=== PATIENT | female | born 1960 | race Caucasian/White ===

== ENCOUNTER → 2021-07-13 | Outpatient (CLI) | payer BC ==
[~2021-07-13] MED LIST: ALPR.5 PO; BENZ2 PO; BUSP10 PO; CITA20 PO; DIAZ5 PO; DIPATR PO; HALO5 PO; OMEP20ER PO; PROM25 PO
== END | disposition home or self-care (01) ==
LOC: LAB SHORT 13:26 → LAB 13:26
PROVIDERS: Hospitalist
DX: Z12.4 Encounter for screening for malignant neoplasm of cervix (principal); R30.0 Dysuria
CPT/HCPCS: 87077; 87086; 87186

== ENCOUNTER 2022-03-29 08:59 | Day surgery (SDC) | payer BC ==
[~2022-03-29] VITALS: Ht 172.7 cm; Wt 99.9 kg
[2022-03-29] MEDS ORDERED: FAMO20 (09:19)
--- NOTE | 2022-03-29 09:43 | NUR ---
03/29/22 0943 Nery Ledezma PCN ALLERGY DR NORIEGA SAYS OK TO GIVE ANCEF PER ORD.TCR
--- NOTE | 2022-03-29 10:07 | NUR ---
03/29/22 KASSANDRA RICHARDS 0.05MG OF EPI ADDED TO 10MLS OF ROPIVACAINE 0.5% TO CREATE A LOCAL SOLUTION OF ROPIVACAINE 0.5% WITH EPI 1:200,000. LOCAL POURED ONTO STERILE FIELD FOR USE DURING CASE. 1MG OF EPI ADDED TO 1ST BAG OF 3000ML OF LR TO USE FOR IRRIGATION DURING PROCEDURE.
--- NOTE | 2022-03-29 11:02 | NUR ---
03/29/22 1102 Le Dela Cruz UPON ARRIVAL TO PACU PATIENT REQUIRED JAW THRUST FOR FIRST 5 MINUTES, DR RUDOLPH WAS AT BEDSIDE DURING FIRST FEW MINUTES.
--- NOTE | 2022-03-29 12:38 | NUR ---
03/29/22 [facility]IV[facility] PER ORDERS, PATIENT STATED PAIN 5/10, SEE VITAL SIGN STRIP FOR VITALS.
== END 2022-03-29 12:34 | disposition home or self-care (01) ==
LOC: ORSCSDS 08:59
PROVIDERS: Orthopaedic Surgery
PROC: 0SBD4ZZ Excision of Left Knee Joint, Percutaneous Endoscopic Approach (ICD-10-PCS; principal; 2022-03-29 10:30)
DX: S83.242A Other tear of medial meniscus, current injury, left knee, initial encounter (principal); M17.12 Unilateral primary osteoarthritis, left knee; F41.8 Other specified anxiety disorders; Z79.899 Other long term (current) drug therapy
CPT/HCPCS: A9270; J0171; J0690; J1100; J1885; J2250; J2405; J2704; J2795; J3010

== ENCOUNTER → 2022-06-20 | Outpatient (CLI) | payer BC ==
[~2022-06-20] MED LIST changes: +FAMO20
== END ==
LOC: LAB 08:30 → LAB SHORT 08:30
DX: R30.0 Dysuria (principal)
CPT/HCPCS: 87077; 87086; 87186

== ENCOUNTER → 2022-09-22 | Outpatient (CLI) | payer BC ==
[~2022-09-22] MED LIST changes: +CIPR500 PO; +METR500 PO; +Norco 5-325 Ta1 EACH PO
[2022-09-22 14:50] LABS: BASOPHILS ABSOLUTE AUTO 0.04 K/mm3 (0.00-0.23); BASOPHILS PERCENT AUTO 0 % (0-2); EOSINOPHILS ABSOLUTE AUTO 0.14 K/mm3 (0.00-0.68); EOSINOPHILS PERCENT AUTO 1 % (0-6); Hematocrit 35.1 % (33.0-51.0); Hemoglobin 11.1 g/dL (11.5-16.0); IMMATURE GRAN ABSOLUTE AUTO 0.03 K/mm3 (0.00-0.10); IMMATURE GRAN PERCENT AUTO 0 % (0-1); LYMPHOCYTES ABSOLUTE AUTO 1.41 K/mm3 (0.84-5.20); LYMPHOCYTES PERCENT AUTO 14 % (21-46); MONOCYTES ABSOLUTE AUTO 0.63 K/mm3 (0.16-1.47); MONOCYTES PERCENT AUTO 6 % (4-13); Mean Corpuscular HGB 27.3 pg (26.0-34.0); Mean Corpuscular HGB Conc 31.6 g/dL (31.5-36.5); Mean Corpuscular Volume 87 fL (80-100); Mean Platelet Volume 10.3 fL (9.1-12.4); NEUTROPHILS ABSOLUTE AUTO 8.15 K/mm3 (1.96-9.15); NEUTROPHILS PERCENT AUTO 78 % (41-73); Platelet Count 287 K/mm3 (150-400); RDW Coefficient Variation 12.9 % (11.7-14.2); RDW Standard Deviation 41.2 fL (35.1-46.3); Red Blood Cell Count 4.06 M/mm3 (3.80-5.20)
== END | disposition home or self-care (01) ==
LOC: LAB SHORT 11:10 → LAB 11:10
PROVIDERS: Hospitalist
DX: K57.92 Diverticulitis of intestine, part unspecified, without perforation or abscess without bleeding (principal)
CPT/HCPCS: 85025

== ENCOUNTER 2022-09-23 01:08 | Inpatient (IN) | payer BC ==
[~2022-09-23] VITALS: Ht 172.7 cm; Wt 96.6 kg
[~2022-09-23 01:08] MED LIST changes: -CIPR500 PO; -METR500 PO; -Norco 5-325 Ta1 EACH PO
[2022-09-23 02:11] LABS: BASOPHILS ABSOLUTE AUTO 0.03 K/mm3 (0.00-0.23); BASOPHILS PERCENT AUTO 0 % (0-2); EOSINOPHILS ABSOLUTE AUTO 0.12 K/mm3 (0.00-0.68); EOSINOPHILS PERCENT AUTO 1 % (0-6); Hematocrit 35.9 % (33.0-51.0); Hemoglobin 11.3 g/dL (11.5-16.0); IMMATURE GRAN ABSOLUTE AUTO 0.12 K/mm3 (0.00-0.10); IMMATURE GRAN PERCENT AUTO 1 % (0-1); LYMPHOCYTES ABSOLUTE AUTO 1.37 K/mm3 (0.84-5.20); LYMPHOCYTES PERCENT AUTO 11 % (21-46); MONOCYTES ABSOLUTE AUTO 0.85 K/mm3 (0.16-1.47); MONOCYTES PERCENT AUTO 7 % (4-13); Mean Corpuscular HGB Conc 31.5 g/dL (31.5-36.5); Mean Corpuscular Volume 86 fL (80-100); NEUTROPHILS ABSOLUTE AUTO 10.41 K/mm3 (1.96-9.15); NEUTROPHILS PERCENT AUTO 81 % (41-73); Platelet Count 281 K/mm3 (150-400); RDW Coefficient Variation 12.9 % (11.7-14.2); RDW Standard Deviation 40.6 fL (35.1-46.3); Red Blood Cell Count 4.19 M/mm3 (3.80-5.20)
[2022-09-23 02:16] LABS: Albumin, Blood 3.3 g/dL (3.4-5.0); Albumin/Globulin Ratio 0.8 (0.8-1.8); Bilirubin, Total 0.6 mg/dL (0.1-1.0); Bun/Creatinine Ratio 20.7 (12.0-20.0); Calcium, Blood 9.2 mg/dL (8.5-10.1); Creatinine, Blood 0.72 mg/dL (0.40-1.00); Globulin, Blood 4.2 g/dL (2.2-4.0); Potassium, Blood 3.9 mmol/L (3.5-5.5); Total Protein, Blood 7.5 g/dL (6.4-8.2)
[2022-09-23 08:50] VITALS: BP 112/72
--- NOTE | 2022-09-23 13:28 | NUR ---
Pt. is awake in bed and welcomes my visit. 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 Facilitate a life review and engage in a dialogue regarding work and miranda. Consider matters of miranda and belief, and establish rapport. Pt. displays evidence being engaged and aware. Prayed with Pt. Pt. and spouse both verblaize gratitude for the spiritual care visit.
[2022-09-23 14:29] VITALS: BP 103/78
--- NOTE | 2022-09-23 19:20 | NUR ---
SHIFT SUMMARY PT HAS DONE WELL SINCE ARRIVAL TO UNIT. A/O X'S 4. TOLERATING CLEAR LIQUIDS WITH NO N/V SINCE ARRIVAL. ORDER FOR TORADOL X'S 4 PRN PAIN, PT HAS NOT REQUIRED THIS SHIFT. PLAN TO CONTINUE IV ABX AT THIS TIME.
[2022-09-23 20:52] VITALS: BP 121/68
[2022-09-24 04:27] LABS: BASOPHILS ABSOLUTE AUTO 0.02 K/mm3 (0.00-0.23); BASOPHILS PERCENT AUTO 0 % (0-2); EOSINOPHILS ABSOLUTE AUTO 0.25 K/mm3 (0.00-0.68); EOSINOPHILS PERCENT AUTO 4 % (0-6); Hematocrit 29.9 % (33.0-51.0); Hemoglobin 9.4 g/dL (11.5-16.0); IMMATURE GRAN ABSOLUTE AUTO 0.01 K/mm3 (0.00-0.10); IMMATURE GRAN PERCENT AUTO 0 % (0-1); LYMPHOCYTES ABSOLUTE AUTO 1.68 K/mm3 (0.84-5.20); LYMPHOCYTES PERCENT AUTO 27 % (21-46); MONOCYTES ABSOLUTE AUTO 0.44 K/mm3 (0.16-1.47); MONOCYTES PERCENT AUTO 7 % (4-13); Mean Corpuscular HGB 27.2 pg (26.0-34.0); Mean Corpuscular HGB Conc 31.4 g/dL (31.5-36.5); Mean Corpuscular Volume 86 fL (80-100); NEUTROPHILS PERCENT AUTO 61 % (41-73); Platelet Count 210 K/mm3 (150-400); RDW Coefficient Variation 12.7 % (11.7-14.2); RDW Standard Deviation 40.3 fL (35.1-46.3); Red Blood Cell Count 3.46 M/mm3 (3.80-5.20)
[2022-09-24 04:54] LABS: Albumin, Blood 2.7 g/dL (3.4-5.0); Albumin/Globulin Ratio 0.8 (0.8-1.8); Bilirubin, Total 0.5 mg/dL (0.1-1.0); Bun/Creatinine Ratio 11.7 (12.0-20.0); Calcium, Blood 8.8 mg/dL (8.5-10.1); Creatinine, Blood 0.77 mg/dL (0.40-1.00); Globulin, Blood 3.4 g/dL (2.2-4.0); Magnesium, Blood 1.8 mg/dL (1.6-2.4); Potassium, Blood 3.9 mmol/L (3.5-5.5); Total Protein, Blood 6.1 g/dL (6.4-8.2)
[2022-09-24 05:15] VITALS: BP 118/71
[2022-09-24 07:54] VITALS: BP 125/63
[2022-09-24 11:09] LABS: Percent Saturation 7.4 % (15.0-50.0)
[2022-09-24 14:56] VITALS: BP 121/64
[2022-09-24] MEDS ORDERED: CIPR500 PO (16:24)
[2022-09-24] MEDS ORDERED: Norco 5-325 Ta1 EACH PO (16:25)
[2022-09-24] MEDS ORDERED: METR500 PO (16:25)
--- NOTE | 2022-09-24 17:30 | NUR ---
DISCHARGE PT DISCHARGED HOME FROM UNIT AT APROX 1715. PT GIVEN WRITTEN AND VERBAL DC INSTRUCTIONS AND VERBALIZED UNDERSTANDING OF THESE INSTRUCTIONS. IV REMOVED, TOLERATED WELL. HARD COPY FOR NARCOTIC PAIN MEDICATION GIVEN TO PT, COPY IN CHART. PT STATES SHE ALREADY HAS ABX SCRIPTS AT HOME SO NO NEED TO FAX TO PHARMACY. PT DECLINED WC TO [facility].
== END 2022-09-24 17:15 | disposition home or self-care (01) | DRG 392 ==
LOC: ER 01:08 → SURS 06:16 → MEDS 06:16 → SURS 08:45
PROVIDERS: Internal Medicine; Student in an Organized Health Care Education/Training Program; ADMIT Student in an Organized Health Care Education/Training Program
DX: K57.20 Diverticulitis of large intestine with perforation and abscess without bleeding (principal); D64.9 Anemia, unspecified; K21.9 Gastro-esophageal reflux disease without esophagitis; G47.30 Sleep apnea, unspecified; Z88.0 Allergy status to penicillin; Z88.8 Allergy status to other drugs, medicaments and biological substances; Z98.51 Tubal ligation status; Z98.84 Bariatric surgery status; Z98.890 Other specified postprocedural states; Z79.899 Other long term (current) drug therapy
CPT/HCPCS: 36415; 74177; 80053; 82728; 83540; 83550; 83690; 83735; 85025; 96361; 96365-59; 96367; 96375; 99285-25; A9270; J0744; J1750; J1885; J2270; J2405; J7030; J7050; J7120; Q9967

== ENCOUNTER 2022-12-16 12:35 | Day surgery (SDC) | payer BC ==
[~2022-12-16] VITALS: Ht 172.7 cm; Wt 97.9 kg
[~2022-12-16 12:35] MED LIST changes: +CIPR500 PO; +METR500 PO; +Norco 5-325 Ta1 EACH PO
[2022-12-16] MEDS ORDERED: ERGO50000 (12:45)
--- NOTE | 2022-12-16 12:57 | NUR ---
12/16/22 1257 Nery Ledezma CHARTED BY LEATHA VALLEJO
[2022-12-16 15:11] VITALS: BP 92/68
== END 2022-12-16 15:07 | disposition home or self-care (01) ==
LOC: ORSCSDS 12:35
PROVIDERS: Surgery
PROC: 0DBK8ZX Excision of Ascending Colon, Via Natural or Artificial Opening Endoscopic, Diagnostic (ICD-10-PCS; principal; 2022-12-16 13:45)
DX: Z87.19 Personal history of other diseases of the digestive system (principal); D12.2 Benign neoplasm of ascending colon; K57.30 Diverticulosis of large intestine without perforation or abscess without bleeding; K21.9 Gastro-esophageal reflux disease without esophagitis; G47.33 Obstructive sleep apnea (adult) (pediatric); F41.9 Anxiety disorder, unspecified; F32.A Depression, unspecified; Z79.899 Other long term (current) drug therapy
CPT/HCPCS: 88305; J2704; J7120

== ENCOUNTER → 2024-07-25 | Outpatient (CLI) | payer OTHER ==
[~2024-07-25] MED LIST changes: +ERGO50000
== END ==
LOC: LAB SHORT 19:38 → LAB 19:38
DX: N30.01 Acute cystitis with hematuria (principal)
CPT/HCPCS: 87077; 87086; 87186